=== PATIENT | male | born 1965 | race Two or more races ===

== ENCOUNTER 2017-03-20 03:07 | Observation (INO) | payer OTHER ==
[~2017-03-20] VITALS: Ht 170.2 cm; Wt 67.3 kg
--- NOTE | 2017-03-20 03:18 | NUR ---
PT BIB [facility]RE AND [facility] FOR CHEST PAIN. PT C/O CHEST TIGHTNESS AND SOB. PT STATES THAT WENT HE WOKE UP THIS MORNING ABOT 2 HOURS AGO, HE FELT ANXIOUS, CHEST TIGHTNESS WITH LT ARM TINGLING AND SOB. PT IS A/O X4 FOLLOWS COMMANDS AND SPEECH IS CLEAR, BLE+BUE PULSE EQUAL AND STRONG, AND CAP REFILL < 3 SEC. LS CLEAR BILATERAL AND CHEST RISE AND FALL EQUAL AND UNLABORED. PT PLACES ON CARDIAC MONTIOR, 2LPM VIA NC AND VS STABLE. PT HAS 18G IV IN THE LT FOREARM. PT HAS NO OTHER COMPLAINTS AT THIS TIME. WILL CONTINUE TO MONITOR.
--- NOTE | 2017-03-20 03:32 | NUR ---
PT COMPLAINTS OF LT ARM PAIN. ER MD NOTIFIED
--- NOTE | 2017-03-20 03:38 | NUR ---
XRAY AT BEDSIDE FOR CXR.
[2017-03-20 03:48] LABS: CALCIUM 8.9 mg/dL (8.5-10.1); CARBON DIOXIDE 23.9 mmol/L (21-32); CHLORIDE SERUM 95 mmol/L (98-107); CREATININE SERUM 0.6 mg/dL (0.7-1.3); GFR1 > 60 mL/min; GLUCOSE SERUM 191 mg/dL (74-106); SODIUM SERUM 134 mmol/L (136-145)
[2017-03-20 04:14] LABS: BASOPHIL % 0.5 % (0-2); PLATELET COUNT 131 x10^3mcL (130-400); RED CELL DISTRIBUTION WIDTH 13.9 % (11.5-14.5)
--- NOTE | 2017-03-20 04:27 | NUR ---
PT MEDICATED PER EMAR.
[2017-03-20] MEDS ORDERED: METFORMIN500 M1 GT (05:07)
[2017-03-20] MEDS ORDERED: ATIVAN1 MG PO (05:07)
[2017-03-20] MEDS ORDERED: ZESTRIL5 MG PO (05:08)
[2017-03-20] MEDS ORDERED: CARDIZEM30 MG PO (05:08)
--- NOTE | 2017-03-20 05:38 | NUR ---
REPORT GIVEN TO KALEN WILLS FOR MST ADMIT
--- NOTE | 2017-03-20 06:01 | NUR ---
REC'D PT FROM ED VIA [facility]. Pt ALERT, ORIENTED, X4. TELE #8 SR WITH ELEVATED T WAVE. DENIES CHEST PAIN. IV ACCESS TO LFA WNL. ORIENTED Pt TO ROOM AND SURROUNDINGS. 6L VIA MN. BED IN LOWEST POSITION. CALL LIGHT WITHIN REACH. WILL CONT TO MONITOR.
[2017-03-20 06:05] VITALS: BP 151/80
--- NOTE | 2017-03-20 07:30 | NUR ---
PATIENT ASLEEP AT THIS TIME, AROUSABLE. DENIES CP PAIN AT THIS TIME. FAMILY MEMBERS AT BEDSIDE. IV INTACT; NEEDS ANTICIPATED. POC EXPLAINED. CONT TO MONITOR.
--- NOTE | 2017-03-20 08:21 | NUR ---
NUR[employer]ERY SCHOOL TEACHER AT BEDSIDE DRAW BLOOD AT THIS TIME.
[2017-03-20 08:56] LABS: CHOLESTEROL/HDL RATIO 2.6; MAGNESIUM 2.1 mg/dL (1.8-2.4); PHOSPHOROUS 3.9 mg/dL (2.5-4.9)
[2017-03-20 09:06] LABS: FREE T4 0.99 ng/dL (0.76-1.46); FREE THYROXINE INDEX 2.6 ug/dL (1.4-4.5); T4(THYROXINE) 6.2 ug/dL (4.7-13.3)
[2017-03-20 09:07] LABS: T3 TOTAL 0.95 ng/mL
--- NOTE | 2017-03-20 09:14 | NUR ---
DR MAYERS ROUND WITH MEDICAL TEAM; DISCUSS POC AND TX WITH PATIENT AND FAMILY; WILL CONT WITH CARDIAC WORKUP.
[2017-03-20 10:16] VITALS: BP 154/83
--- NOTE | 2017-03-20 12:45 | NUR ---
PATIENT UP WALKING IN THE HALLWAY. NO COMPLAINTS. CONT TO MONITOR
[2017-03-20 13:11] VITALS: BP 175/86
--- NOTE | 2017-03-20 13:27 | NUR ---
PAGE DR. LARKIN FOR ORDER PATIENT REQUEST ATIVAN FOR ANXIETY. PER DR. LARKIN WILL PUT IN AN ORDER FOR ATIVAN.
--- NOTE | 2017-03-20 13:44 | NUR ---
PATIENT IN BED WATCHING TV, ATIVAN 1MG PO GIVEN FOR ANXIETY. WILL EVAL IN AN HOUR. CALL LIGHT WITHIN REACH.
[2017-03-20 14:30] VITALS: BP 168/85
--- NOTE | 2017-03-20 15:14 | NUR ---
ECHOCARDIOGRAM PENDING PATIENT WITH NURSE
[2017-03-20 17:37] VITALS: BP 159/83
--- NOTE | 2017-03-20 17:58 | NUR ---
PATIENT SIT UP IN BED EATING HIS DINNER NO COMPLAINTS, FAMILY MEMBERS AT BEDSIDE. CHANGE NEW BAG IVF. NEEDS ANTICIPATED.
[2017-03-20 19:25] VITALS: BP 165/84
--- NOTE | 2017-03-20 19:25 | NUR ---
RECEIVED PT AWAKE ALERT AND VERBALLY RESPONSIVE.DENIES CHESTPAIN AT THIS TIME.BP 165/84 MMHG,HR 79.VERBALIZED SOME RELIEF FROM ATIVAN EARLIER D/T NICOTINE WITHDRAWAL.PT IS A SMOKER.DISCUSSED HOSPITAL SMOKING POLICY AND VERBALIZED UNDERSTANDING.WILL CONTINUE TO MONITOR.
[2017-03-20 20:24] LABS: microscopic required? NO
[2017-03-20 20:30] LABS: UA SPECIFIC GRAVITY <=1.005 (1.005-1.035); urine erythrocyte NEGATIVE (NEGATIVE)
[2017-03-20 20:38] LABS: AMPHETAMINE QUAL UR NONE DETECTED (NEG <=1000)
--- NOTE | 2017-03-21 04:55 | NUR ---
PT SLEPT WELL.DENIES CHESTPAIN ALL NIGHT.ATIVAN 1 MG PO ADMINISTERED FOR ANXIETY WITH GOOD RESULT.ALL NEEDS MET.WILL CONTINUE TO MONITOR.
[2017-03-21 05:16] VITALS: BP 139/92
--- NOTE | 2017-03-21 06:28 | NUR ---
BS THIS AM @ 158 MG/DL.SUPPOSE TO GET 3 UNITS REGULAR INSULIN PER SLIDING SCALE,PT VERBALIZED HE ALWAYS GETS "FUNNY FEELING" AND WOULD RATHER GET HIS METFORMIN.DR. MARINELLI AWARE.WILL ENDORSE TO AM NURSE.
[2017-03-21 06:33] LABS: BASOPHIL % 0.2 % (0-2)
[2017-03-21 06:36] LABS: PLATELET COUNT 103 x10^3mcL (130-400)
[2017-03-21 06:37] LABS: CALCIUM 8.8 mg/dL (8.5-10.1); CARBON DIOXIDE 26.7 mmol/L (21-32); CHLORIDE SERUM 107 mmol/L (98-107); CREATININE SERUM 0.6 mg/dL (0.7-1.3); GFR1 > 60 mL/min; GLUCOSE SERUM 146 mg/dL (74-106); MAGNESIUM 2.1 mg/dL (1.8-2.4); PHOSPHOROUS 3.8 mg/dL (2.5-4.9); SODIUM SERUM 143 mmol/L (136-145)
--- NOTE | 2017-03-21 08:00 | NUR ---
AWAKE AND ALERT. TEMP 99.5. TELE #8 SINUS RHYTHM WITH ELEVATED T WAVE. DENIES CHEST DISCOMFORT. RESP 18 EVEN. BREATH SOUNDS CLEAR. NO COUGH OR SOB. PULSE OX 96% RA. ABD SOFT, BOWEL TONES PRESENT. HAD EPISODE OF LOOSE STOOL THIS AM, ON LACTULOSE ORDERED. VOIDING QS. NO EDEMA. PULSES PRESENT. SCD IN PLACE. IV PATENT LFA INFUSING NORMAL SALINE 100CC/HR. ECHO IN PROGRESS AT BEDSIDE. SIDE RAILS UP X2. CALL LIGHT IN REACH.
--- NOTE | 2017-03-21 08:45 | NUR ---
DR HOUSER AND MEDICAL TEAM IN ON ROUNDS. CHARGE NURSE PRESENT. DISCUSSED PLAN OF CARE. FOR DISCHARGE HOME TODAY. PT VERBALIZED UNDERSTANDING.
[2017-03-21 09:44] VITALS: BP 149/70
[2017-03-21] MEDS ORDERED: GOOD SENSE OMEP20 MG PO (09:47)
[2017-03-21 10:43] VITALS: BP 149/70
--- NOTE | 2017-03-21 11:45 | NUR ---
DISCHARGE PACKET COMPLETED. REVIEWED DISCHARGE INFORMATION WITH PT AND FAMILY REGUARDING DC MEDICATIONS, ACTIONS AND SIDE EFFECTS. PT REQUESTS RX FOR ATIVAN. PER DR LARKIN TO FOLLOWUP WITH PCP NEXT WEEK FOR MEDICATION. TO CHANGE APPT TO SEE PCP FOR FRIDAY PT WILL CALL TODAY. PT REPORTS "STILL SMOKES AND DRINKS BEER." ENCOURAGED HEALTH BENEFITS OF STOPPING THESE TWO ACTIVITIES. VERBALIZED UNDERSTANDING.
== END 2017-03-21 11:45 | disposition home or self-care (01) | DRG 392 ==
LOC: ED 03:07 → DU 05:05
PROVIDERS: Emergency Medicine; ADMIT Family Medicine
DX: K21.9 Gastro-esophageal reflux disease without esophagitis (principal); E87.1 Hypo-osmolality and hyponatremia; D68.69 Other thrombophilia; F41.9 Anxiety disorder, unspecified; E11.59 Type 2 diabetes mellitus with other circulatory complications; E11.65 Type 2 diabetes mellitus with hyperglycemia; I10 Essential (primary) hypertension; M79.7 Fibromyalgia; M54.9 Dorsalgia, unspecified; G89.29 Other chronic pain; F17.210 Nicotine dependence, cigarettes, uncomplicated; Z68.23 Body mass index [BMI] 23.0-23.9, adult; Z79.84 Long term (current) use of oral hypoglycemic drugs
CPT/HCPCS: 82962; 83880; 84439; G0378; J7030; Q0092